=== PATIENT | female | born 1930 | race Caucasian/White ===

== ENCOUNTER 2016-04-12 08:31 | Inpatient (IN) | payer MEDICARE ==
--- NOTE | 2016-04-12 08:57 | EDPRACDOC ---
[id number] Family Exam Limitations: Other (PT WITH PROFOUND DEMENTIA) - History of Present Illness HPI: PT PRESENTS WITH INABILITY TO AMBULATE SINCE FALL YESTERDAY. AT BEDSIDE REPORTS SHE IS FAVORING HER RIGHT HIP. Injuries/Pain Location: Reports: pelvis (RIGHT HIP) Reason for Fall: Reports: unknown Loss of Consciousness: unsure Allergies/Adverse Reactions: Allergies No Known Allergies Allergy (Verified 04/12/16 15:30) Home Medications: Ambulatory Orders Lisinopril [Prinivil, Zestril] 20 mg PO DAILY 06/19/12 Aspirin [Aspirin EC] 81 mg PO DAILY 02/11/16 Cholecalciferol (Vitamin D3) [Vitamin D3] 1,000 unit PO DAILY 02/11/16 Multivitamin [One-A-Day Essential] 0.5 each PO DAILY 02/11/16 Vitamin E 400 unit PO DAILY 02/11/16 Levothyroxine [Synthroid, Levoxyl] 25 mcg PO DAILY 04/12/16 ED Past Medical History - History Reviewed Yes Nurses notes reviewed and agree except as marked - Patient Medical History Neurological History: Reports: Dementia Cardiac History: Reports: Hypertension, Heart Attack (PACEMAKER), Pacemaker Psychological History: Denies: Depression Systemic History: Reports: Cancer (BREAST) Surgical History: Reports: Other (MASTECTOMY) - Social Medical History Smoking Status: Current status unknown EDM Review of Systems - Review of Systems ROS Unobtainable: Yes Hx Limited due to age/level of understanding of patient Musculoskeletal: Hip (PAIN WITH PALPATION OF RIGHT HIP.) - Physical Exam Constitutional: Alert Oriented to: Not Oriented Last recorded Vital Signs: Oxygen Pulse Oxygen Saturation O2 Device Oxygen Flow Rate Fraction of Inspired Oxygen ( FIO2) - HEENT Head: negative: Deformity, Laceration Eye Exam: negative: Conjunctival Injection, Pale Conjunctiva Oropharynx: negative: Membranes Dry Nose: negative: Congestion, Discharge Neck: negative: Limited ROM - Respiratory/Cardiovascular Respiratory: Normal - CTA. negative: Accessory Muscle Use, Diminished, Tachypnea Cardiovascular: negative: Bradycardia - GI Auscultation: Normal Palpation: Normal Tenderness: Non tender - Musculoskeletal Extremities: Radial Pulse (PALPABLE) - Integumentary Skin: Warm, Dry. negative: Rash - Neurologic Memory Impaired: Unable to Test Motor Function: Unable to Test Cranial Nerve: Unable to Test Mood Description: Flat Thought: negative: Coherent ED Injury/Fall Exam - Physical Exam Head Injury: no evidence of injury Extremity Exam: no pedal edema, pelvis stable (WITH PAIN TO PALPATION OF RIGHT) - Teresita Coma Score Best Eye Response ([place]): (4) open spontaneously Best Verbal Response (Teresita): (4) confused conversation (ABLE TO SAY YES TO QUESTIONS OF PAIN.) Best Motor Response ([place]): (5) localizes to pain [place] Total: 13 - Results 04/12/16 09:21 04/12/16 09:21 - EKG EKG #1 EKG Time: 08:45 -: Yes EKG interpreted by me Rate: bpm: 84 [place]: LAD Rhythm: NSR Hypertrophy: LVH ST: Nonsp - Departure Yes I personally saw and evaluated the patient. Disposition: Admit IP To This Hospital Final Diagnosis: RIGHT HIP FRACTURE Decision to Admit Time: 11:45 Decision to admit date: 04/12/16 Decision to admit: from ED
[2016-04-12 09:09] LABS: LEUKOCYTES/URINE NEG (NEGATIVE); NITRITE/URINE NEG (NEGATIVE); URINE OCCULT BLOOD 1+ (NEG/TRACE); WBC/URINE 0-2 (0-5)
[2016-04-12 09:29] LABS: AUTOMATED BASOPHIL 0.4 % (0-2); AUTOMATED EOSINOPHIL 1.1 % (0-5); AUTOMATED LYMPH 14.2 % (17-44); AUTOMATED MONOCYTE 8.2 % (3-10); AUTOMATED NEUTROPHIL 76.1 % (45-76); MPV 7.8 fL (7.4-10.4)
[2016-04-12 09:40] LABS: BLOOD UREA NITROGEN 13 MG/DL (7-17); CALCIUM 9.8 MG/DL (8.4-10.2); CALCULATED OSMOLALITY 268 MOs/Kg (270-290); CHLORIDE 104 mEq/L (98-107); CPK TOTAL WITH POSSIBLE MB 168 IU/L (30-134); GLUCOSE 95 MG/DL (70-99); PARTIAL THROMB. TIME 23.8 SEC (22-35); SODIUM LEVEL 139 mEq/L (137-146)
[2016-04-12 10:10] LABS: CPKMB 2.1 ng/mL (0-4.5)
--- NOTE | 2016-04-12 10:32 | DIRPT ---
CLINICAL DATA: Right hip pain following a fall yesterday. EXAM: RIGHT FEMUR - 2 VIEW COMPARISON: Right hip radiographs obtained at the same time. FINDINGS: Mildly impacted right femoral neck fracture with mild valgus angulation. The no other fractures or dislocation. Atheromatous arterial calcifications. IMPRESSION: Mildly impacted right femoral neck fracture. Electronically Signed By: Maulik Freeman M.D. On: 04/12/2016 10:29
--- NOTE | 2016-04-12 10:33 | DIRPT ---
CLINICAL DATA: Right hip pain following a fall yesterday. EXAM: BILATERAL HIP (WITH PELVIS) 3-4 VIEWS COMPARISON: Right femur radiographs obtained at the same time. Pelvis and left hip radiographs dated 08/05/2007. FINDINGS: Interval mildly impacted right femoral neck fracture with mild valgus angulation. Normal appearing left hip and remainder of the pelvis. Mild lower lumbar spine degenerative changes. IMPRESSION: Mildly impacted right femoral neck fracture. Electronically Signed By: Maulik Freeman M.D. On: 04/12/2016 10:31
--- NOTE | 2016-04-12 10:39 | DIRPT ---
CLINICAL DATA: Status post fall. Unable to ambulate. EXAM: CHEST 1 VIEW COMPARISON: 02/11/2016 FINDINGS: There is no focal parenchymal opacity. There is no pleural effusion or pneumothorax. There is stable cardiomegaly. There is a dual lead cardiac pacemaker. The osseous structures are unremarkable. IMPRESSION: No active disease. Electronically Signed By: Laurel Garcia On: 04/12/2016 10:37
--- NOTE | 2016-04-12 11:50 | PCM.ORTHCO ---
Consultation Date: 04/12/16 Hvac/R Instructor: Mateo Berumen Reason for Consult: Fracture - History of Present Illness Ms. Weir is an 85 year old female with dementia who presented to the ED today via ambulance after presumably sustaining a fall at home yesterday morning and injuring her right hip. She is non-verbal. Her is her primary caregiver. He explains he was in the kitchen making a snack and found her on the porch, sitting on a step, holding her right hip. He was able to get her back inside but early this morning she awoke in pain again so this he called an ambulance. - Past Medical and Surgical History Cardiac History: Reports: Hypertension, Heart Attack (PACEMAKER), Pacemaker Systemic History: Reports: Cancer (BREAST) Psychological History: Denies: Depression Neurological History: Reports: Dementia Past Surgical History: Reports: Other (MASTECTOMY) Allergies No Known Allergies Allergy (Verified 04/12/16 08:53) Home Medications Lisinopril [Prinivil, Zestril] 20 mg PO DAILY 06/19/12 Aspirin [Aspirin EC] 81 mg PO DAILY 02/11/16 Cholecalciferol (Vitamin D3) [Vitamin D3] 1,000 unit PO DAILY 02/11/16 Multivitamin [One-A-Day Essential] 0.5 each PO DAILY 02/11/16 Vitamin E 400 unit PO DAILY 02/11/16 Levothyroxine [Synthroid, Levoxyl] 25 mcg PO DAILY 04/12/16 - Social History Smoking Status: Current status unknown - Review of Systems Musculoskeletal:: Weakness, Joint Pain (right hip), Swelling Integumentary: No Symptoms Reported - Physical Exam Vital Signs: Initial Vitals Temperature 98.7 F 04/12/16 08:31 Pulse Rate 76 04/12/16 08:31 Respiratory Rate 16 04/12/16 08:31 Blood Pressure 191/84 H 04/12/16 08:31 Pulse Oxygen Saturation 93 04/12/16 08:31 Constitutional: No apparent distress, Confused Oriented to: Not Oriented - Musculoskeletal Extremities: Other (Right lower extremity: Minimally shortened but normal rotation. Pain with log roll. No apprent pain to palpation over groin. Dorsalis pedis 2+ with brisk capillary refill.) - Integumentary Skin: Normal - Neurologic Memory Impaired: Unable to Test Motor Function: Unable to Test - Lab Results Laboratory Results - last 24 hr 04/12/16 04/12/16 04/12/16 08:48 09:21 09:21 WBC RBC Hgb Hct MCV MCH MCHC RDW Plt Count MPV Neut % (Auto) Lymph % (Auto) White % (Auto) Eos % (Auto) Baso % (Auto) Absolute Neuts (auto) Absolute Lymphs (auto) PT INR APTT Sodium 139 Potassium 3.4 L Chloride 104 Carbon Dioxide 26 Anion Gap 12 BUN 13 Creatinine 0.70 Estimated GFR (MDRD) > 60 Glucose 95 Calculated Osmolality 268 L Calcium 9.8 Total Bilirubin 0.8 AST 30 ALT 27 Alkaline Phosphatase 75 Creatine Kinase 168 H CK-MB (CK-2) 2.1 Troponin I < 0.01 Total Protein 8.0 Albumin 4.3 Urine Color Yellow Urine Clarity Clear Urine pH 6.0 Ur Specific [place] 1.015 Urine Protein Neg Urine Glucose (UA) Neg Urine Ketones Neg Urine Occult Blood 1+ H Urine Nitrite Neg Urine Bilirubin Neg Urine Urobilinogen <2.0 Ur Leukocyte Esterase Neg Urine RBC 2-5 Urine WBC 0-2 Blood Type B NEGATIVE Antibody Screen Positive Antibody Identification Anti-D 04/12/16 04/12/16 09:21 09:21 WBC 11.6 H RBC 4.69 Hgb 13.7 Hct 40.0 MCV 85 MCH 29.2 MCHC 34.2 RDW 13.9 Plt Count 210 MPV 7.8 Neut % (Auto) 76.1 H Lymph % (Auto) 14.2 L White % (Auto) 8.2 Eos % (Auto) 1.1 Baso % (Auto) 0.4 Absolute Neuts (auto) 8.82 H Absolute Lymphs (auto) 1.62 PT 10.4 INR 1.0 APTT 23.8 Sodium Potassium Chloride Carbon Dioxide Anion Gap BUN Creatinine Estimated GFR (MDRD) Glucose Calculated Osmolality Calcium Total Bilirubin AST ALT Alkaline Phosphatase Creatine Kinase CK-MB (CK-2) Troponin I Total Protein Albumin Urine Color Urine Clarity Urine pH Ur Specific [place] Urine Protein Urine Glucose (UA) Urine Ketones Urine Occult Blood Urine Nitrite Urine Bilirubin Urine Urobilinogen Ur Leukocyte Esterase Urine RBC Urine WBC Blood Type Antibody Screen Antibody Identification - Diagnostic Findings Exam(s): [id number] RAD/DG HIP COMPLETE 2+V-BILAT CLINICAL DATA: Right hip pain following a fall yesterday. EXAM: BILATERAL HIP (WITH PELVIS) 3-4 VIEWS COMPARISON: Right femur radiographs obtained at the same time. Pelvis and left hip radiographs dated 08/05/2007. FINDINGS: Interval mildly impacted right femoral neck fracture with mild valgus angulation. Normal appearing left hip and remainder of the pelvis. Mild lower lumbar spine degenerative changes. IMPRESSION: Mildly impacted right femoral neck fracture. Exam(s): [id number] CT/CT PELVIS W/O IV CM CLINICAL DATA: Fall today. Right hip fracture. Initial encounter. EXAM: CT PELVIS WITHOUT CONTRAST TECHNIQUE: Multidetector CT imaging of the pelvis was performed following the standard protocol without intravenous contrast. COMPARISON: Hip radiographs earlier today. FINDINGS: There is a mildly impacted subcapital right femoral neck fracture. No evidence of acetabular or pelvic fracture. No left hip fracture identified. Generalized osteopenia noted. Pubic symphysis degenerative changes noted. No intrapelvic hematoma or hemoperitoneum visualized. No pelvic mass identified. Uterus and adnexal regions are unremarkable in appearance. Large amount of stool seen in the rectosigmoid colon. IMPRESSION: Mildly impacted subcapital right femoral neck fracture. Osteopenia. - Assessment/Plan (1) Fracture of femoral neck, right S72.001A - FRACTURE OF UNSP PART OF NECK OF RIGHT FEMUR, INIT Acute Present on Admission: Yes initial encounter closed O F S72.001A - Fracture of unspecified part of neck of right femur, initial encounter for closed fracture Plan: X-rays were reviewed. CT was ordered and reviewed. Patient is a candidate for osteosynthesis with cannulated screws. Risks were discussed with the patient's to include infection, malunion, nonunion, continued pain with range of motion, DVT, pulmonary embolism, stroke, failure of hardware, painful hardware, neurovascular injury, and possible . He elected to proceed with surgery. Consent will be obtained and surgery will be scheduled for tomorrow morning as long as patient is medically stable.
[2016-04-12] MEDS ORDERED: CHLORHEXIDINE (HIBICLENS) 4 OZ BOTTLE TOP ONE ×2 (11:52→21:00)
[2016-04-12] MEDS ORDERED: MUPIROCIN 2% OINT 22 GM TUBE NAS SCH (12:00)
--- NOTE | 2016-04-12 12:15 | DIRPT ---
CLINICAL DATA: Fall today. Right hip fracture. Initial encounter. EXAM: CT PELVIS WITHOUT CONTRAST TECHNIQUE: Multidetector CT imaging of the pelvis was performed following the standard protocol without intravenous contrast. COMPARISON: Hip radiographs earlier today. FINDINGS: There is a mildly impacted subcapital right femoral neck fracture. No evidence of acetabular or pelvic fracture. No left hip fracture identified. Generalized osteopenia noted. Pubic symphysis degenerative changes noted. No intrapelvic hematoma or hemoperitoneum visualized. No pelvic mass identified. Uterus and adnexal regions are unremarkable in appearance. Large amount of stool seen in the rectosigmoid colon. IMPRESSION: Mildly impacted subcapital right femoral neck fracture. Osteopenia. Electronically Signed By: Ayden Weaver M.D. On: 04/12/2016 12:13
[2016-04-12] MEDS ORDERED: Albuterol/Ipratropium Neb 3 ML NEB NEB PRN (12:28)
[2016-04-12] MEDS ORDERED: CEFAZOLIN 1 GM VIAL IV ONE (12:30)
[2016-04-12] MEDS ORDERED: MORPHINE 2 MG/ML INJECTION IV PRN (12:36)
--- NOTE | 2016-04-12 12:43 | HISTPHYS ---
- Chief Complaint right hip pain - History of Present Illness 85 yowf brought to emergency room early on today for evaluation of severe right hip pain. Patient has end-stage dementia and has been cared for by her . Patient is total care dependent with all ADLs and IADLs. reports that she has sustain a fall yesterday and she has been limping on the right leg. He stays that she has been fair amount of discomfort. Initially he thought that she sustained musculoskeletal contusion because pain and limitation of motion. Since early on today patient was in severe pain and unable to put any weight on that leg. She she was brought to emergency room for evaluation and ED workup showed intertrochanteric right hip fracture. Patient be admitted to medical services. - Medical History Cardiac History: Reports: No Significant History, Hypertension, Heart Attack ( PACEMAKER), Hypercholesterolemia, Pacemaker, Valvular Heart Disease Respiratory History: Reports: No Significant History GI/ History: Reports: Renal Disease, Gastroesophageal Reflux Musculoskeletal History: Reports: Osteoarthritis Systemic History: Reports: Cancer (BREAST) Neurological History: Reports: Dementia Psychological History: Reports: Depression, Anxiety - Surgical History Reports: Other (MASTECTOMY,pacer) - Medictions/Allergies Allergies No Known Allergies Allergy (Verified 04/12/16 08:53) Current Medication List: Reviewed Home Medications Lisinopril [Prinivil, Zestril] 20 mg PO DAILY 06/19/12 Aspirin [Aspirin EC] 81 mg PO DAILY 02/11/16 Cholecalciferol (Vitamin D3) [Vitamin D3] 1,000 unit PO DAILY 02/11/16 Multivitamin [One-A-Day Essential] 0.5 each PO DAILY 02/11/16 Vitamin E 400 unit PO DAILY 02/11/16 Levothyroxine [Synthroid, Levoxyl] 25 mcg PO DAILY 04/12/16 - Family History Reports: Hypertension - Social History Travel Outside of [place] in the Last 3 Months?: No Lives: With Family Smoking Status: Current status unknown - Review of Systems Yes Review of systems cannot be obtained due to the patient's medical condition (Dementia) - Physical Exam Vital Signs: Initial Vitals Temperature 98.7 F 04/12/16 08:31 Pulse Rate 76 04/12/16 08:31 Respiratory Rate 16 04/12/16 08:31 Blood Pressure 191/84 H 04/12/16 08:31 Pulse Oxygen Saturation 93 04/12/16 08:31 Constitutional: Alert, Cachectic, Confused, Distress, Restless Oriented to: Not Oriented Respiratory: Diminished, Rhonchi Cardiovascular: Normal, Systolic murmur - GI Auscultation: Normal Palpation: Normal Tenderness: Non tender Rectal Exam: Deferred - Exam Deferred: Yes - Musculoskeletal Back: Normal Extremities: Normal, Cyanosis Spine: limited range of motion - Integumentary Skin: Normal, Warm, Dry Lymphatics: Normal - Neurologic Memory Impaired: Short-term, Long-term Motor Function: Abnormal Cranial Nerve: Normal Cerebellar: Ataxia Mood Description: Anxious, Agitated Thought: Delusions Perception: Normal - Focused CV Perfusion Exam Vital Signs: Last Vital Signs Temp 98.7 F 04/12/16 08:31 Pulse 76 04/12/16 11:34 Resp 20 04/12/16 11:34 BP 177/108 H 04/12/16 11:34 Pulse Ox 100 04/12/16 11:34 - Diagnostic Findings Initial Vitals Temperature 98.7 F 04/12/16 08:31 Pulse Rate 76 04/12/16 08:31 Respiratory Rate 16 04/12/16 08:31 Blood Pressure 191/84 H 04/12/16 08:31 Pulse Oxygen Saturation 93 04/12/16 08:31 04/12/16 09:21 04/12/16 09:21 Patient Name: YUKI AMEZQUITA LOC: ED : 1930 AGE: 85 Order Date:04/12/16 Date of Service: Report # [id number] Ord Physician: Reynaldo Barahona DO Exam # [id number] Emergency Physician: Reynaldo Barahona DO Exam(s): [id number] RAD/DG FEMUR 2VR CLINICAL DATA: Right hip pain following a fall yesterday. EXAM: RIGHT FEMUR - 2 VIEW COMPARISON: Right hip radiographs obtained at the same time. FINDINGS: Mildly impacted right femoral neck fracture with mild valgus angulation. The no other fractures or dislocation. Atheromatous arterial calcifications. IMPRESSION: Mildly impacted right femoral neck fracture. Electronically Signed By: Maulik Freeman M.D. On: 04/12/2016 10:29 Electronically Signed By: Maulik Freeman MD Electronically Signed Date/Time: Dictate Date/Time: 04/12/16 1028 Patient Name: YUKI AMEZQUITA LOC: ED : 1930 AGE: 85 Order Date:04/12/16 Date of Service: Report # [id number] Ord Physician: Reynaldo Barahona DO Exam # [id number] Emergency Physician: Reynaldo Barahona DO Exam(s): [id number] RAD/DG CHEST 1V CLINICAL DATA: Status post fall. Unable to ambulate. EXAM: CHEST 1 VIEW COMPARISON: 02/11/2016 FINDINGS: There is no focal parenchymal opacity. There is no pleural effusion or pneumothorax. There is stable cardiomegaly. There is a dual lead cardiac pacemaker. The osseous structures are unremarkable. IMPRESSION: No active disease. Electronically Signed By: Laurel Garcia On: 04/12/2016 10:37 Electronically Signed By: Laurel Garcia MD Electronically Signed Date/Time: Dictate Date/Time: 04/12/16 1025 Technologist: Estephanie Galvin Transcribed By: Mary Grace - Assessment (1) Fracture of femoral neck, right S72.001A - FRACTURE OF UNSP PART OF NECK OF RIGHT FEMUR, INIT Acute Present on Admission: Yes Qualifiers: Encounter type: initial encounter Fracture type: closed Open fracture type: O Fracture healing: F Qualified Code(s): S72.001A - Fracture of unspecified part of neck of right femur, initial encounter for closed fracture Will defer management this problem to Orthopedics (2) Dementia F03.90 - UNSPECIFIED DEMENTIA WITHOUT BEHAVIORAL DISTURBANCE Chronic Present on Admission: Yes Qualifiers: Dementia type: Alzheimer's disease Alzheimer's disease onset: unspecified onset Dementia behavioral disturbance: with behavioral disturbance Qualified Code(s): G30.8 - Other Alzheimer's disease; F02.81 - Dementia in other diseases classified elsewhere with behavioral disturbance Continue maximal supportive care. Avoid excessive sedation and anticholinergics. Family was advised the patient is at high risk for inpatient delirium and may require chemical and or physical restraints for safety (3) Right hip pain M25.551 - PAIN IN RIGHT HIP Acute Present on Admission: Yes Continue scheduled Tylenol and schedule low-dose Oxy IR (4) Osteoporosis M81.0 - AGE-RELATED OSTEOPOROSIS W/O CURRENT PATHOLOGICAL FRACTURE Acute Present on Admission: Yes Continue calcium and vitamin-D, obtain vitamin-D level. 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 Critical Care: No Code: 24492
[2016-04-12] MEDS: D5W/NS 1,000 ML IV SCH ×2 (16:22→23:43)
[2016-04-12] MEDS ORDERED: Vaccine Screening Complete SCH (17:00)
[2016-04-12] MEDS: OXYCODONE HCL 5 MG TABLET PO SCH ×2 (17:26→23:42)
[2016-04-12] MEDS: ACETAMINOPHEN 325 MG/TAB TABLET PO SCH ×2 (17:28→23:42)
[2016-04-12] MEDS ORDERED: ENOXAPARIN 40 MG/0.4 ML PFS SQ SCH (18:00)
[2016-04-13] MEDS: LEVOTHYROXINE 25 MCG (0.025 MG) TAB PO SCH (05:25)
[2016-04-13] MEDS: ACETAMINOPHEN 325 MG/TAB TABLET PO SCH ×3 (05:25→18:11)
[2016-04-13] MEDS: OXYCODONE HCL 5 MG TABLET PO SCH ×3 (05:25→18:18)
[2016-04-13] MEDS ORDERED: CEFAZOLIN 1 GM VIAL IV ONE (06:30)
[2016-04-13] MEDS: LISINOPRIL 20 MG TAB PO SCH (07:47)
[2016-04-13] MEDS: D5W/NS 1,000 ML IV SCH ×2 (08:13→21:01)
[2016-04-13] MEDS ORDERED: Non-Formulary Medication ITEM (Cholecalciferol (Vitamin D3) [Vitamin D3] 1,000 UNIT) PO SCH (09:00)
[2016-04-13] MEDS ORDERED: VITAMIN E 400 UNIT PO SCH (09:00)
[2016-04-13] MEDS ORDERED: MULTIVITAMIN PO SCH (09:00)
[2016-04-13] MEDS ORDERED: MEPERIDINE 25 MG/ML TUBEX IV PRN (09:58)
[2016-04-13] MEDS ORDERED: PROMETHAZINE 25 MG/ML VIAL IV PRN (09:58)
[2016-04-13] MEDS ORDERED: hydrALAZINE 20 MG/ML VIAL IV PRN (09:58)
[2016-04-13] MEDS ORDERED: FENTANYL 100 MCG/2 ML VIAL IV PRN ×2 (09:58)
[2016-04-13] MEDS ORDERED: LABETALOL 20 MG/4 ML SYRINGE IV PRN (09:58)
[2016-04-13] MEDS ORDERED: HYDROmorphone 1 MG INJECTION IV PRN ×2 (09:58)
[2016-04-13] MEDS ORDERED: ONDANSETRON HCL 4 MG ODT TAB PO PRN (09:58)
[2016-04-13] MEDS ORDERED: ONDANSETRON HCL 4 MG/2 ML VIAL IV PRN (09:58)
--- NOTE | 2016-04-13 09:59 | SC.ANESPOS ---
[id number] Stable, Pain Control Adequate Phase I & II Recovery Complete: Yes Apparent Anesthesia Complication: No : N - Vital Signs Blood Pressure: 179/84 Pulse: 95 Resp Rate: 20 O2 Sat: 95 Temp: 97.9 F
--- NOTE | 2016-04-13 10:00 | HIM.ANES ---
Anesthesia Evaluation & Plan - Focused Review of Systems Cardiac History: Yes: Hx Hypertension, Hx Heart Attack (PACEMAKER), Hx Pacemaker , Hx Cardiac Disorders HEENT: No: Other HEENT Problems Gastrointestinal: Yes: Hx Gastrointestinal Disorders Genitourinary: No: Hx Renal Disease (No per ) Neurological/Musculoskeletal: Yes: Hx Alzheimer's Disease, Hx Dementia, Hx Neurological Disorders Other Neurological Problems: Dementia Psychological: No Hx Anxiety, No Hx Depression, Yes Hx Mental/Emotional Disorders Endocrine: Yes: Hx Hypothyroidism Smoking Status: Current status unknown Hx Chest Xray (date): Yes (04/12/16) Surgical History: Yes: Other (MASTECTOMY) - Focused Physical Exam NPO since: MIDNIGHT Mallampati: Class II Thyromental Distance: Greater than 3 Neck: Full Range of Motion Dental: Removable Dental Work Cardiovascular/Chest: Other (Paced) Respiratory: Lungs clear Any problems with anesthesia, including nausea and vomiting?: No Beta Michael given (if appropriate): N/A Other: Problem List Problem Status Onset Fracture of femoral neck, right Acute Acute upper respiratory infection Acute Constipation Acute PT/PTT/INR/ PT 10.4 SEC (9.2-11.2) 04/12/16 09:21 INR 1.0 04/12/16 09:21 APTT 23.8 SEC (22-35) 04/12/16 09:21 Allergies Allergy/AdvReac Type Severity Reaction Status Date / Time No Known Allergies Allergy Verified 04/12/16 15:30 Home Medications Medication Instructions Recorded Last Taken Type Lisinopril [Prinivil, Zestril] 20 mg PO DAILY 06/19/12 04/11/16 History Aspirin [Aspirin EC] 81 mg PO DAILY 02/11/16 04/11/16 History Cholecalciferol (Vitamin D3) 1,000 unit PO DAILY 02/11/16 04/11/16 History [Vitamin D3] Multivitamin [One-A-Day Essential] 0.5 each PO DAILY 02/11/16 04/11/16 History Vitamin E 400 unit PO DAILY 02/11/16 04/11/16 History Levothyroxine [Synthroid, Levoxyl] 25 mcg PO DAILY 04/12/16 04/11/16 History Height and Weight Patient's height 5 ft 6 in Patient's weight 104 lb 4 oz Weight (Calculated Kilograms) 47.287 BMI 17.3 Vital Signs Temperature 97.9 F 04/13/16 09:59 Pulse Rate 95 04/13/16 09:59 Respiratory Rate 20 04/13/16 09:59 Blood Pressure 179/84 04/13/16 09:59 Pulse Oxygen Saturation 95 04/13/16 09:59 - Anesthetic Plan Anesthesia Type: General ASA Class: 4 -: I have examined this patient and reviewed the medical record. The patient has been assessed prior to anesthesia. Risks and benefits of anesthesia and anesthetic technique options have been discussed and all questions answered. The patient accepts the risk and desires me to proceed with the planned anesthetic.
--- NOTE | 2016-04-13 11:28 | HIMOPRPT ---
DATE OF PROCEDURE: 04/13/16 PREOPERATIVE DIAGNOSIS: Nondisplaced femoral neck fracture right hip. POSTOPERATIVE DIAGNOSIS: Same. OPERATION: Internal fixation with 3 cannulated screws. SURGEON: Mateo Berumen MD. GRANT SPECIALIST: Amelia Clifford PA-C ANESTHESIA: General. DRAINS: None. COMPLICATIONS: None. BLOOD LOSS: 5cc DISPOSITION: Stable to recovery. PROCEDURE IN DETAIL: The patient was taken back to the surgical suite, where general anesthesia was induced. YUKI AMEZQUITA was then transferred to the fracture table in the supine position. The left hip and knee were flexed and secured with the well leg celaya. The right foot was placed in the traction boot, but no traction was pulled across the hip. The C-arm was then brought in so that AP and lateral C-arm images could be obtained. C-arm confirmed good position of the hip fracture. The right hip and thigh were then prepped and draped in the standard sterile fashion with an impervious wall drape. A 1 inch longitudinal incision was made along the lateral thigh proximally. The guidewire from the [place] 8 mm cannulated screws was then inserted using C-arm guidance into the femur, up the femoral neck into the femoral head inferiorly. Good position of the guidewire was confirmed on AP and lateral C-arm images using the parallel guide. Two more parallel guidewires were inserted proximally in an inverted triangle type construct. Good position of these 2 guidewires was confirmed on AP and lateral C-arm images. The depth gauge was used to measure depth for the individual screws. The cannulated drill was used to drill the lateral cortex of the femur on each guidewire, and then each screw was inserted up into the femoral head, obtaining adequate purchase. Good position of the screws was confirmed on AP and lateral C-arm images. The C-arm was then used to shoot an AP image while the hip was internally and externally rotated, confirming no head penetration of the screws. The guidewires were then removed. The wound was irrigated with sterile saline solution. Subcutaneous tissues were closed with inverted 2-0 Vicryl sutures and reinier were placed in the skin. Sterile dressings were applied. The patient was then extubated and taken to the recovery room in stable condition. She tolerated the procedure well without immediate complications.
[2016-04-13] MEDS ORDERED: DIPHENHYDRAMINE 50 MG/ML VIAL IV PRN (11:33)
[2016-04-13] MEDS ORDERED: Aluminum;Magnesium;Simethicone 30 ML UDC PO PRN (11:33)
[2016-04-13] MEDS ORDERED: MAGNESIUM HYDROXIDE 30 ML BOTTLE PO PRN (11:33)
[2016-04-13] MEDS ORDERED: DIPHENHYDRAMINE 25 MG CAP PO PRN (11:33)
[2016-04-13] MEDS ORDERED: NALOXONE 0.4 MG/ML AMPULE IV SCH (12:00)
[2016-04-13] MEDS ORDERED: FENTANYL 100 MCG/2 ML VIAL ONE (12:08)
[2016-04-13] MEDS: CALCIUM CARBONATE + VITAMIN D 500 MG TAB PO SCH ×2 (12:18→18:12)
[2016-04-13] MEDS: CHOLECALCIFEROL 1000 UNITS TAB PO SCH (12:18)
[2016-04-13] MEDS: VITAMIN E 400 UNITS/CAP CAP PO SCH (12:18)
[2016-04-13] MEDS: VITAMINS, MULTIPLE CAP PO SCH (12:18)
[2016-04-13] MEDS: Cefazolin 2gm/50 ml D5W 2 GM/50 ML RTU IV SCH ×2 (13:40→22:05)
[2016-04-13] MEDS ORDERED: SUCCINYLCHOLINE 20 MG/1 ML INJ 10 ML MDV IV ONE (15:40)
[2016-04-13] MEDS ORDERED: ONDANSETRON HCL 4 MG/2 ML VIAL IV ONE (15:40)
[2016-04-13] MEDS ORDERED: EPHEDrine 50 MG/ML VIAL IM ONE (15:40)
[2016-04-13] MEDS ORDERED: DEXAMETHASONE 4 MG/ML VIAL IV ONE (15:40)
[2016-04-13] MEDS ORDERED: LIDOCAINE 100 MG PFS IV ONE (15:40)
[2016-04-13] MEDS ORDERED: MORPHINE 10 MG/ML INJECTION IM ONE (15:40)
[2016-04-13] MEDS ORDERED: PROPOFOL 200 MG/20 ML VIAL IV ONE (15:40)
[2016-04-13] MEDS ORDERED: FENTANYL 100 MCG/2 ML VIAL IV ONE (15:40)
[2016-04-13] MEDS: SODIUM CHLORIDE 0.9% 3 ML FLUSH FLUSH SCH (18:09)
[2016-04-13] MEDS: Aspirin (Orange Enteric Coated) 325 mg tab PO SCH (18:19)
--- NOTE | 2016-04-13 18:20 | GENMEDPROG ---
Subjective Note: Patient in bed. Sleepy, recovering from anesthesia. No signs of distress. Pain controlled. Notes Reviewed: Yes Events from last night noted and discussed with Clinical Staff Current Medication List: Reviewed Currently: Reports: Cough, Reflux Sx DVT Prophylaxis: Yes - Physical Examination Vital Signs and I&O: Last Vital Signs Temp 97.9 F 04/13/16 14:33 Pulse 95 04/13/16 14:33 Resp 20 04/13/16 14:33 BP 179/84 04/13/16 14:33 Pulse Ox 95 04/13/16 14:33 Oxygen Pulse Oxygen Saturation 95 O2 Device Nasal Cannula Oxygen Flow Rate 2 Fraction of Inspired Oxygen ( FIO2) Intake & Output 04/10/16 04/11/16 04/12/16 04/13/16 23:59 23:59 23:59 23:59 Intake Total 549 1162 Output Total 5 Balance 549 1157 Patient's weight 48.619 kg 47.287 kg General: Alert, No acute distress HEENT: Normal, PERRLA, EOMI, Anicteric Sclera Neck: Non-tender, Limited range of motion Lymphatics: Normal Respiratory: Normal - CTA, Diminished, Rhonchi. negative: Accessory Muscle Use , Tachypnea Cardiovascular: Regular rate, Normal S1, Normal S2, Murmurs GI: Normal bowel sounds, Soft, Non tender, No hepatospenomegaly Extremities/Musculoskeletal: Normal pulses, Cyanosis, DJD Skin: Warm,Dry and Intact, No rashes, No breakdown, No significant lesion Neurological: Cranial nerves 3-12 NL Psych/Mental Status: Anxious, Confused, Disoriented Lab/DI/Studies Reviewed: Allergies No Known Allergies Allergy (Verified 04/12/16 15:30) Last Vital Signs Temp 97.9 F 04/13/16 14:33 Pulse 95 04/13/16 14:33 Resp 20 04/13/16 14:33 BP 179/84 04/13/16 14:33 Pulse Ox 95 04/13/16 14:33 04/12/16 09:21 04/12/16 09:21 - Assessment (1) Fracture of femoral neck, right Acute S72.001A - FRACTURE OF UNSP PART OF NECK OF RIGHT FEMUR, INIT Qualifiers: Encounter type: initial encounter Fracture type: closed Open fracture type: O Fracture healing: F Qualified Code(s): S72.001A - Fracture of unspecified part of neck of right femur, initial encounter for closed fracture Comment/Plan: Status post surgical repair.. Continue postop care (2) Dementia Chronic F03.90 - UNSPECIFIED DEMENTIA WITHOUT BEHAVIORAL DISTURBANCE Qualifiers: Dementia type: Alzheimer's disease Alzheimer's disease onset: unspecified onset Dementia behavioral disturbance: with behavioral disturbance Qualified Code(s): G30.8 - Other Alzheimer's disease; F02.81 - Dementia in other diseases classified elsewhere with behavioral disturbance Comment/Plan: No behavior problems so far. Continue supportive care (3) Right hip pain Acute M25.551 - PAIN IN RIGHT HIP Comment/Plan: Continue scheduled Tylenol and scheduled low-dose Oxy IR (4) Osteoporosis Acute M81.0 - AGE-RELATED OSTEOPOROSIS W/O CURRENT PATHOLOGICAL FRACTURE Comment/Plan: Continue calcium and vitamin-D, obtain vitamin-D level. (5) Anemia Acute D64.9 - ANEMIA, UNSPECIFIED Qualifiers: Anemia type: unspecified type Iron deficiency anemia type: I Vitamin B12 deficiency anemia type: V Folate deficiency anemia type: F Bone marrow failure anemia type: B Hemolytic anemia type: H Other causes of anemia: O Qualified Code(s): D64.9 - Anemia, unspecified Comment/Plan: Mild and expected after surgery. Monitor counts. 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, adult Chronic R62.7 - ADULT FAILURE TO THRIVE Comment/Plan: Continue nutritional support Case Care Discussed with: Patient, Consultants, Family, Nursing Staff, Patient Service Rep Education/Counseling Given To: Patient Education/Counseling Given Regarding: Diagnosis, Treatment, Prognosis, Follow Up Total Time: 45 min . Critical Care: No Code: 21790
[2016-04-13] MEDS: DOCUSATE-SENNA CONCENTRATE TAB PO SCH (22:08)
[2016-04-14] MEDS: ACETAMINOPHEN 325 MG/TAB TABLET PO SCH ×5 (01:27→23:08)
[2016-04-14] MEDS: OXYCODONE HCL 5 MG TABLET PO SCH ×5 (01:27→23:05)
[2016-04-14] MEDS: Cefazolin 2gm/50 ml D5W 2 GM/50 ML RTU IV SCH (05:00)
[2016-04-14] MEDS: LEVOTHYROXINE 25 MCG (0.025 MG) TAB PO SCH (05:25)
[2016-04-14] MEDS: SODIUM CHLORIDE 0.9% 3 ML FLUSH FLUSH SCH ×2 (05:25→18:05)
[2016-04-14 07:26] LABS: MPV 7.7 fL (7.4-10.4)
[2016-04-14 07:38] LABS: BLOOD UREA NITROGEN 13 MG/DL (7-17); CALCIUM 8.9 MG/DL (8.4-10.2); CALCULATED OSMOLALITY 269 MOs/Kg (270-290); CHLORIDE 108 mEq/L (98-107); GLUCOSE 100 MG/DL (70-99); SODIUM LEVEL 140 mEq/L (137-146)
--- NOTE | 2016-04-14 08:02 | PCM.ORTHBL ---
- Subjective Hospital Day #: 2 Post Op Day: 1 (s/p ORIF right hip with cannulated screws on 04/13/16) Daily Assessment - Patient: Reports: No new complaints, Afebrile. Denies: Awake Alert Oriented x4, Shortness of breath, Nausea, Vomiting - Objective / Physical Exam Vital Signs: Temperature: 98.6 F (04/14/16 06:34) HR: 98 (04/14/16 06:34)RR: 18 (04/14/16 02: 42) BP: 132/79 (04/14/16 06:34)Pulse Ox: 98 (04/14/16 06:34) General: negative: Alert, Oriented x3 (severely demented) Musculoskeletal / Extremities: 2 plus Dorsalis Pedis Pulse, Dressing Clean/Dry/ Intact (right lateral hip) Neurological: Dorsiflexion Intact, Plantarflexion Intact Skin: Warm,Dry and Intact, No rashes, No breakdown. negative: Rash, Erythema Laboratory/Diagnostics Reviewed: 04/14/16 06:50 04/14/16 06:50 - Assessment and Plan (1) Fracture of femoral neck, right Acute S72.001A - FRACTURE OF UNSP PART OF NECK OF RIGHT FEMUR, INIT Present on Admission: Yes initial encounter closed O F S72.001A - Fracture of unspecified part of neck of right femur, initial encounter for closed fracture Comment/Plan: s/p ORIF right hip with cannulated screws on 04/13/2016 Plan: Patient is severely demented. Did not get to work with PT yesterday. WBAT; begin PT/OT today. Continue pain management and ASA 325mg with TEDs and SCDs for DVT prophylaxis. May not be a good candidate for rehab because of her mental status, per medicine. May need d/c home with home health. We will continue to follow.
[2016-04-14] MEDS: Aspirin (Orange Enteric Coated) 325 mg tab PO SCH ×2 (08:26→18:05)
[2016-04-14] MEDS: LISINOPRIL 20 MG TAB PO SCH (08:27)
--- NOTE | 2016-04-14 09:07 | PCM.DCS92 ---
- Final/Secondary Discharge Diagnosis (1) Fracture of femoral neck, right Acute S72.001A - FRACTURE OF UNSP PART OF NECK OF RIGHT FEMUR, INIT Present on Admission: Yes initial encounter closed O F S72.001A - Fracture of unspecified part of neck of right femur, initial encounter for closed fracture Activity: As Tolerated Call Office For: Worsening Symptoms, Wound is Draining Pus, Fever over 101 F, Pain Uncontrolled By Meds Discontinue use of:: Alcohol, All Illegal Substances, All Types of Tobacco <Amelia Rodriguez - Last Filed: 04/14/16 09:05> - Final/Secondary Discharge Diagnosis (1) Fracture of femoral neck, right Acute S72.001A - FRACTURE OF UNSP PART OF NECK OF RIGHT FEMUR, INIT Present on Admission: Yes initial encounter closed O F S72.001A - Fracture of unspecified part of neck of right femur, initial encounter for closed fracture Discharge Disposition: Home Cognitive Discharge Status: Altered Mental Status Fuctional Discharge Status: Walker Assistance, Post-op Weakness Diet at Discharge: As Tolerated Activity: As Tolerated, No Heavy Lifting, No Driving - DC Summary Notes Hospital Course Note:: Discharge summary on patient named YUKI AMEZQUITA admitted to [facility] on 04/12/16 by Faustino Patterson MD. Date of discharge is [04/15/16]. Afebrile. Hospital course and surgery uneventful. Ambulating with PT. Continue pain management. ECASA 325mg BID for 30 days post-op for DVT prophylaxis. Stable for discharge home with HH. To follow-up in office in 2 weeks or earlier as needed. <Dex Pandey - Last Filed: 04/15/16 18:44> Discharge Condition: Improved Physician Follow up/Referrals: Benja Franco MD [Primary Care Provider] - One Week Mateo Berumen MD [Staff Physician] - Two Weeks Home Medications/ New Prescriptions: New Citalopram (anti-depressant) [Celexa] 20 mg PO HS #90 tab Oxycodone Immediate Release [Oxycodone Immediate Release (OxyIR)] 2.5 mg PO Q6H PRN #60 tab PRN Reason: Pain Acetaminophen [Tylenol] 650 mg PO QID #120 tablet Continue Lisinopril [Prinivil, Zestril] 20 mg PO DAILY Multivitamin [One-A-Day Essential] 0.5 each PO DAILY Cholecalciferol (Vitamin D3) [Vitamin D3] 1,000 unit PO DAILY Vitamin E 400 unit PO DAILY Aspirin [Aspirin EC] 81 mg PO DAILY Levothyroxine [Synthroid, Levoxyl] 25 mcg PO DAILY Wound Care Surgical Site: Yes Site Description (if applicable): right lateral hip May Shower Starting:: at discharge with assistance Remove Clear Dressing In How Many Days?: post-op day 7 <Amelia Rodriguez - Last Filed: 04/14/16 09:05> Medical Equipment (Order must still be written on paper): Walker Medication Instructions: Rx on Chart Continue Ice Packs/Ice Machine to Operative Area: Yes Activity as Tolerated: Yes Weight Bearing: As Tolerated Current Dressing: Tegaderm Dressing Care: Keep Wound Clean & Dry, Shower with Tegaderm Dsg, No Tub Baths, Do Not Change Dressing - Consults/Home Health Outpatient Consults: Home Health <Amelia Rodriguez - Last Filed: 04/14/16 09:05> Medication Instructions: Take Stool Softener - Consults/Home Health Outpatient Consults: Home Health <Dex Pandey - Last Filed: 04/15/16 18:44> - Physical Exam Vital Signs: Initial Vitals Temperature 98.7 F 04/12/16 08:31 Pulse Rate 76 04/12/16 08:31 Respiratory Rate 16 04/12/16 08:31 Blood Pressure 191/84 H 04/12/16 08:31 Pulse Oxygen Saturation 93 04/12/16 08:31 Constitutional: No apparent distress Oriented to: Not Oriented - HEENT Head: Normal - Musculoskeletal Extremities: Pedal Pulse, Other (dressing clean, dry, intact). negative: Calf Tenderness <Dex Pandey - Last Filed: 04/15/16 18:44>
[2016-04-14] MEDS: D5W/NS 1,000 ML IV SCH ×2 (11:33→11:41)
[2016-04-14] MEDS: CALCIUM CARBONATE + VITAMIN D 500 MG TAB PO SCH ×2 (11:33→18:04)
[2016-04-14] MEDS: VITAMIN E 400 UNITS/CAP CAP PO SCH (11:34)
[2016-04-14] MEDS: VITAMINS, MULTIPLE CAP PO SCH (11:34)
[2016-04-14] MEDS: CHOLECALCIFEROL 1000 UNITS TAB PO SCH (11:37)
[2016-04-14 15:22] VITALS: BMI 17.4
--- NOTE | 2016-04-14 17:32 | GENMEDPROG ---
Subjective Note: Patient in bed more interactive today. Confused and disoriented by able to follow simple commands. Stool that up and took a few steps with physical therapy and sat in the chair Notes Reviewed: Yes Events from last night noted and discussed with Clinical Staff Current Medication List: Reviewed Currently: Reports: Cough, Reflux Sx DVT Prophylaxis: Yes - Physical Examination Vital Signs and I&O: Last Vital Signs Temp 96.8 F L 04/14/16 14:15 Pulse 75 04/14/16 14:15 Resp 18 04/14/16 14:15 BP 125/72 04/14/16 14:15 Pulse Ox 93 04/14/16 14:15 Oxygen Pulse Oxygen Saturation 93 O2 Device Room Air Oxygen Flow Rate 2 Fraction of Inspired Oxygen ( FIO2) Intake & Output 04/11/16 04/12/16 04/13/16 04/14/16 23:59 23:59 23:59 23:59 Intake Total 549 2611 1089 Output Total 5 Balance 549 2606 1089 Patient's weight 48.619 kg 47.287 kg 49.13 kg General: Alert, No acute distress, Weakness, Fatigue HEENT: Normal, PERRLA, EOMI, Anicteric Sclera Neck: Non-tender, Limited range of motion Lymphatics: Normal Respiratory: Normal - CTA, Diminished, Rhonchi. negative: Accessory Muscle Use , Tachypnea Cardiovascular: Regular rate, Normal S1, Normal S2, Murmurs GI: Normal bowel sounds, Soft, Non tender, No hepatospenomegaly Extremities/Musculoskeletal: Normal pulses, Cyanosis, DJD Skin: Warm,Dry and Intact, No rashes, No breakdown, No significant lesion Neurological: Cranial nerves 3-12 NL Psych/Mental Status: Anxious, Confused, Disoriented - Assessment (1) Fracture of femoral neck, right Acute S72.001A - FRACTURE OF UNSP PART OF NECK OF RIGHT FEMUR, INIT Qualifiers: Encounter type: initial encounter Fracture type: closed Open fracture type: O Fracture healing: F Qualified Code(s): S72.001A - Fracture of unspecified part of neck of right femur, initial encounter for closed fracture Comment/Plan: Status post surgical repair.. Continue postop care. Due to end- stage dementia and inability to follow commands patient not a candidate for inpatient PT. Will arrange for home health PT (2) Dementia Chronic F03.90 - UNSPECIFIED DEMENTIA WITHOUT BEHAVIORAL DISTURBANCE Qualifiers: Dementia type: Alzheimer's disease Alzheimer's disease onset: unspecified onset Dementia behavioral disturbance: with behavioral disturbance Qualified Code(s): G30.8 - Other Alzheimer's disease; F02.81 - Dementia in other diseases classified elsewhere with behavioral disturbance Comment/Plan: No behavior problems so far. Continue supportive care (3) Right hip pain Acute M25.551 - PAIN IN RIGHT HIP Comment/Plan: Continue scheduled Tylenol and scheduled low-dose Oxy IR. Overall pain under good control (4) Osteoporosis Acute M81.0 - AGE-RELATED OSTEOPOROSIS W/O CURRENT PATHOLOGICAL FRACTURE Comment/Plan: Continue calcium and vitamin-D, obtain vitamin-D level. (5) Anemia Acute D64.9 - ANEMIA, UNSPECIFIED Qualifiers: Anemia type: unspecified type Iron deficiency anemia type: I Vitamin B12 deficiency anemia type: V Folate deficiency anemia type: F Bone marrow failure anemia type: B Hemolytic anemia type: H Other causes of anemia: O Qualified Code(s): D64.9 - Anemia, unspecified Comment/Plan: Mild and expected after surgery. Monitor counts. 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 Critical Care: No Code: 56051 (12+)
[2016-04-14] MEDS: DOCUSATE-SENNA CONCENTRATE TAB PO SCH (20:33)
[2016-04-15] MEDS: D5W/NS 1,000 ML IV SCH ×2 (02:12→13:44)
[2016-04-15 05:11] LABS: MPV 7.7 fL (7.4-10.4)
[2016-04-15] MEDS: OXYCODONE HCL 5 MG TABLET PO SCH ×2 (05:25→11:57)
[2016-04-15] MEDS: SODIUM CHLORIDE 0.9% 3 ML FLUSH FLUSH SCH (05:26)
[2016-04-15] MEDS: ACETAMINOPHEN 325 MG/TAB TABLET PO SCH ×2 (05:26→11:57)
[2016-04-15] MEDS: LEVOTHYROXINE 25 MCG (0.025 MG) TAB PO SCH (05:26)
--- NOTE | 2016-04-15 08:33 | PCM.ORTHBL ---
- Subjective Hospital Day #: 3 Post Op Day: 2 (s/p ORIF right hip with cannulated screws on 04/13/16) Daily Assessment - Patient: Reports: No new complaints, Other (Patient is demented and offers little history) - Objective / Physical Exam Vital Signs: Temperature: 98.6 F (04/15/16 06:39) HR: 84 (04/15/16 06:39)RR: 18 (04/15/16 06: 39) BP: 165/88 (04/15/16 06:39)Pulse Ox: 93 (04/15/16 06:39) General: Alert (awoken upon etering room), Cooperative, No acute distress Musculoskeletal / Extremities: 2 plus Dorsalis Pedis Pulse, Dressing Clean/Dry/ Intact. negative: Tenderness (no apparent calf tenderness) Neurological: Positive Sensation First Dorsal Web Space, Sensation to light touch intact, Extensor Hallicus Longus Intact, Flexor Hallicus Longus Intact, Dorsiflexion Intact, Plantarflexion Intact Laboratory/Diagnostics Reviewed: 04/15/16 04:57 04/14/16 06:50 - Assessment and Plan (1) Fracture of femoral neck, right Acute S72.001A - FRACTURE OF UNSP PART OF NECK OF RIGHT FEMUR, INIT Present on Admission: Yes initial encounter closed O F S72.001A - Fracture of unspecified part of neck of right femur, initial encounter for closed fracture Plan: s/p ORIF right hip with cannulated screws PT/OT/WBAT TEDS/SCDS/ECASA 325mg BID for 30 days postop for DVT prophylaxis Continue pain management D/C planning. possible home with HH. Stable per ortho standpoint.
[2016-04-15] MEDS: Aspirin (Orange Enteric Coated) 325 mg tab PO SCH ×2 (09:12→11:58)
[2016-04-15] MEDS: LISINOPRIL 20 MG TAB PO SCH ×2 (09:12→11:58)
[2016-04-15 09:47] VITALS: BP 147/75; PULSE 82; TEMP 98.4
[2016-04-15] MEDS: VITAMINS, MULTIPLE CAP PO SCH (11:57)
[2016-04-15] MEDS: VITAMIN E 400 UNITS/CAP CAP PO SCH (11:57)
[2016-04-15] MEDS: CALCIUM CARBONATE + VITAMIN D 500 MG TAB PO SCH (11:57)
[2016-04-15] MEDS: CHOLECALCIFEROL 1000 UNITS TAB PO SCH (11:57)
--- NOTE | 2016-04-15 13:59 | PCM.DCS92 ---
- Final/Secondary Discharge Diagnosis (1) Fracture of femoral neck, right Acute S72.001A - FRACTURE OF UNSP PART OF NECK OF RIGHT FEMUR, INIT Present on Admission: Yes initial encounter closed O F S72.001A - Fracture of unspecified part of neck of right femur, initial encounter for closed fracture Comment: Status post surgical repair.. Continue postop care. Due to end-stage dementia and inability to follow commands patient not a candidate for inpatient PT. Will arrange for home health PT (2) Dementia Chronic F03.90 - UNSPECIFIED DEMENTIA WITHOUT BEHAVIORAL DISTURBANCE Present on Admission: Yes Alzheimer's disease unspecified onset with behavioral disturbance G30.8 - Other Alzheimer's disease; F02.81 - Dementia in other diseases classified elsewhere with behavioral disturbance Comment: No behavior problems so far. Continue supportive care (3) Right hip pain Acute M25.551 - PAIN IN RIGHT HIP Present on Admission: Yes Comment: Continue scheduled Tylenol and scheduled low-dose Oxy IR. Overall pain under good control (4) Osteoporosis Acute M81.0 - AGE-RELATED OSTEOPOROSIS W/O CURRENT PATHOLOGICAL FRACTURE Present on Admission: Yes Comment: Continue calcium and vitamin-D, obtain vitamin-D level. (5) Anemia Acute D64.9 - ANEMIA, UNSPECIFIED unspecified type I V F B H O D64.9 - Anemia, unspecified Comment: Mild and expected after surgery. Monitor counts. 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, adult Chronic R62.7 - ADULT FAILURE TO THRIVE Present on Admission: Yes Comment: Continue nutritional support Discharge Disposition: Discharge w/ Home Health Discharge Condition: Improved Cognitive Discharge Status: Unable to communicate needs, Altered Mental Status Fuctional Discharge Status: Total Assistance Required, Fall Risk, Deconditioning , Ambulatory Dysfunction Physician Follow up/Referrals: Benja Franco MD [Primary Care Provider] - One Week Mateo Berumen MD [Staff Physician] - Two Weeks Home Medications / New Prescriptions: New Citalopram (anti-depressant) [Celexa] 20 mg PO HS #90 tab Oxycodone Immediate Release [Oxycodone Immediate Release (OxyIR)] 2.5 mg PO Q6H PRN #60 tab PRN Reason: Pain Acetaminophen [Tylenol] 650 mg PO QID #120 tablet Continue Lisinopril [Prinivil, Zestril] 20 mg PO DAILY Multivitamin [One-A-Day Essential] 0.5 each PO DAILY Cholecalciferol (Vitamin D3) [Vitamin D3] 1,000 unit PO DAILY Vitamin E 400 unit PO DAILY Aspirin [Aspirin EC] 81 mg PO DAILY Levothyroxine [Synthroid, Levoxyl] 25 mcg PO DAILY O2 Device: Room Air Diet at Discharge: As Tolerated Activity: As Tolerated Call Office For: Worsening Symptoms, Wound is Draining Pus, Fever over 101 F, Pain Uncontrolled By Meds Discontinue use of:: Alcohol, All Illegal Substances, All Types of Tobacco - DC Summary Notes Hospital Course Note:: Discharge summary on patient named YUKI AMEZQUITA admitted to [facility] on 04/12/16 by Faustino Patterson MD. Date of discharge is []. Patient was initially brought to emergency room on April 12 for evaluation of severe right hip pain which she has developed after a fall day ago. Please refer to the admission for further details. ED workup was undertaken and patient was found to have nondisplaced right intertrochanteric hip fracture. Patient was admitted to medical services of [facility], orthopedic consultation was obtained patient was seen by Dr. Berumen. On April 13 patient has undergone internal fixation with screws placement. Postop course was uneventful. Remaining part of hospitalization was designated to postop supportive care and physical therapy. Patient has remained hemodynamically stable there was no behavioral problems related to underlying dementia. Patient has received scheduled Tylenol and scheduled low-dose Oxy IR with good pain control. She was seen by PT and made minimal progress with therapy. Based on discussion with the family given end-stage dementia and inability to follow commands arrangements were made for patient discharge back home with home health PT. On Apr 15 in clinically stable condition patient has been transferred home to the care of the family and her PCP. Total Time: 45 min . Code: 33284 (>30min.) Wound Care Surgical Site: Yes Site Description (if applicable): right lateral hip May Shower Starting:: at discharge with assistance Remove Clear Dressing In How Many Days?: post-op day 7 - Physical Exam Vital Signs: Last Vital Signs Temp 98.4 F 04/15/16 09:46 Pulse 82 04/15/16 09:46 Resp 16 04/15/16 09:46 BP 147/75 04/15/16 09:46 Pulse Ox 96 04/15/16 09:51 Oxygen Pulse Oxygen Saturation 96 O2 Device Room Air Oxygen Flow Rate 2 Fraction of Inspired Oxygen ( FIO2) Constitutional: Alert, Cachectic, Confused, Distress, Restless Oriented to: Not Oriented - HEENT Head: Normal. negative: Deformity, Laceration Eye: Normal. negative: Conjunctival Injection, Pale Conjunctiva Oropharynx: Normal. negative: Membranes Dry TMJ: Normal Nose: No Symptoms Reported. negative: Congestion, Discharge - Respiratory/Cardiovascular Respiratory: Normal - CTA, Diminished, Rhonchi. negative: Accessory Muscle Use , Tachypnea Cardiovascular: Normal, Systolic murmur - GI Auscultation: Normal Palpation: Normal Tenderness: Non tender Rectal Exam: Deferred - Exam Deferred: Yes - Musculoskeletal Back: Normal Extremities: Normal, Cyanosis - Integumentary Skin: Normal, Warm, Dry Lymphatics: Normal - Neurologic Memory Impaired: Short-term, Long-term Motor Function: Abnormal Cranial Nerve: Normal Cerebellar: Ataxia Mood Description: Anxious, Agitated Thought: Delusions Perception: Normal - Other Exam Other Exam Findings: Allergies No Known Allergies Allergy (Verified 04/12/16 15:30) Last Vital Signs Temp 98.4 F 04/15/16 09:46 Pulse 82 04/15/16 09:46 Resp 16 04/15/16 09:46 BP 147/75 04/15/16 09:46 Pulse Ox 96 04/15/16 09:51 04/15/16 04:57 04/14/16 06:50 Abnormal Lab Results 04/15/16 04:57 RBC 3.73 L Hgb 10.8 L Hct 31.9 L Discharge Home Medication List Lisinopril [Prinivil, Zestril] 20 mg PO DAILY 06/19/12 [History Confirmed ] Aspirin [Aspirin EC] 81 mg PO DAILY 02/11/16 [History Confirmed 04/12/16] Cholecalciferol (Vitamin D3) [Vitamin D3] 1,000 unit PO DAILY 02/11/16 [History Confirmed 04/12/16] Multivitamin [One-A-Day Essential] 0.5 each PO DAILY 02/11/16 [History Confirmed 04/12/16] Vitamin E 400 unit PO DAILY 02/11/16 [History Confirmed 04/12/16] Levothyroxine [Synthroid, Levoxyl] 25 mcg PO DAILY 04/12/16 [History Confirmed 04/12/16] Acetaminophen [Tylenol] 650 mg PO QID #120 tablet 04/15/16 [Rx] Citalopram (anti-depressant) [Celexa] 20 mg PO HS #90 tab 04/15/16 [Rx] Oxycodone Immediate Release [Oxycodone Immediate Release (OxyIR)] 2.5 mg PO Q6H PRN #60 tab 04/15/16 [Rx] New Discharge Medications (Rx) Acetaminophen [Tylenol] 650 mg PO QID #120 tablet 04/15/16 [Rx] Citalopram (anti-depressant) [Celexa] 20 mg PO HS #90 tab 04/15/16 [Rx] Oxycodone Immediate Release [Oxycodone Immediate Release (OxyIR)] 2.5 mg PO Q6H PRN #60 tab 04/15/16 [Rx] Home Medications Lisinopril [Prinivil, Zestril] 20 mg PO DAILY 06/19/12 Aspirin [Aspirin EC] 81 mg PO DAILY 02/11/16 Cholecalciferol (Vitamin D3) [Vitamin D3] 1,000 unit PO DAILY 02/11/16 Multivitamin [One-A-Day Essential] 0.5 each PO DAILY 02/11/16 Vitamin E 400 unit PO DAILY 02/11/16 Levothyroxine [Synthroid, Levoxyl] 25 mcg PO DAILY 04/12/16 Acetaminophen [Tylenol] 650 mg PO QID #120 tablet 04/15/16 Citalopram (anti-depressant) [Celexa] 20 mg PO HS #90 tab 04/15/16 Oxycodone Immediate Release [Oxycodone Immediate Release (OxyIR)] 2.5 mg PO Q6H PRN #60 tab 04/15/16
== END 2016-04-15 15:25 | disposition home health service (06) | DRG 481 ==
LOC: ED 08:31 → EDINP 11:55 → MPS3 14:29
PROVIDERS: ADMIT Internal Medicine; ATTEND Internal Medicine
PROC: 0QH634Z Insertion of Internal Fixation Device into Right Upper Femur, Percutaneous Approach (ICD-10-PCS; principal; 2016-04-13 11:00)
DX: S72.001A Fracture of unspecified part of neck of right femur, initial encounter for closed fracture (principal); F02.81 Dementia in other diseases classified elsewhere, unspecified severity, with behavioral disturbance; G30.8 Other Alzheimer's disease; D64.9 Anemia, unspecified; W19.XXXA Unspecified fall, initial encounter; Y93.9 Activity, unspecified; M81.0 Age-related osteoporosis without current pathological fracture; R62.7 Adult failure to thrive; K21.9 Gastro-esophageal reflux disease without esophagitis; M19.90 Unspecified osteoarthritis, unspecified site; Z85.3 Personal history of malignant neoplasm of breast; F41.8 Other specified anxiety disorders; Z79.899 Other long term (current) drug therapy; Z79.82 Long term (current) use of aspirin; I10 Essential (primary) hypertension; I25.2 Old myocardial infarction; Z95.0 Presence of cardiac pacemaker
CPT/HCPCS: 36415; 71010; 72192; 73521; 80048; 80053; 81001; 82306; 82550; 82553; 84443; 84484; 85025; 85027; 85610; 85730; 86850; 86870; 86900; 86901; 87086; 87641; 93005; 96372; 97162; 97165; 99284; G0237; J0330; J0690; J1100; J1650; J2001; J2270; J2405; J3010; J3490